=== PATIENT | female | born 1930 ===

== ENCOUNTER 2017-08-13 19:55 | Inpatient (IN) | payer MEDICARE ==
[2017-08-13] MEDS ORDERED: Fentanyl 100 MCG/2 ML VIAL ONE (20:57)
[2017-08-13] MEDS ORDERED: Ondansetron ODT 4 MG TAB ONE (20:58)
--- NOTE | 2017-08-13 21:47 | HP ---
DATE OF ADMISSION: 08/13/2017 REQUESTING PHYSICIAN: Graciela Whittaker DO ATTENDING SURGEON: El Mehta MD CONSULTATIONS: Orthopedics, Dr. Jones. HISTORY OF PRESENT ILLNESS: The patient is an 86-year-old woman who was reportedly outside of her home when she tripped and fell landing on her left side. The patient denied loss of consciou sness, hitting her head, weakness, dizziness, or any syncopal-type symptoms. The patient was able to summon help utilizing her Life Alert. She was brought initially to the emergency department in [facility], where she underwent evaluation and examination and was noted to have a left hip fracture, at w hich time, she was transferred to our facility for orthopedic evaluation and admission. ALLERGIES: None. CURRENT MEDICATIONS: The patient does not have her list with her, but states that she takes medicati ons for glaucoma, high blood pressure, high cholesterol, and diabetes. The patient's son is reported ly bringing her medications to our facility. PAST SURGICAL HISTORY: Appendectomy. FAMILY HISTORY: Diabetes and hypertension. PAST MEDICAL HISTORY: Glaucoma, hypertension, hyperlipidemia, type 2 diabetes. SOCIAL HISTORY: The patient smoked tobacco greater than 30 years ago. Denies alcohol or drug use. Currently lives independently at home. REVIEW OF SYSTEMS: 10-point review of systems is negative unless otherwise stated. PHYSICAL EXAMINATION: VITAL SIGNS: Blood pressure 156/81, heart rate 83, respirations 18, oxygen saturation 95% on room ai r, temperature is 97.7. GENERAL: The patient is resting comfortably in the emergency room bed. She is awake, alert, oriente d x3. [place] coma scale is 15. HEENT: Head is normocephalic, atraumatic. Eyes: Extraocular motion intact. PERRLA bilaterally. E ars are atraumatic without discharge. Nose is atraumatic without discharge. Oropharynx is clear. NECK: Nontender. Trachea is midline. No JVD. CHEST: Clear to auscultation with good inspiratory and expiratory effort. HEART: Regular rate and rhythm. ABDOMEN: Soft, flat, nontender. PELVIS: Stable. The patient does have tenderness to palpation to her left hip consistent with her f racture. EXTREMITIES: Neurovascularly intact x4. Capillary refill is less than 3 seconds. BACK: By history is nontender and atraumatic. LABORATORY FINDINGS: White blood cell count 7.5, hemoglobin 12.8, hematocrit 37.1, platelets 187. S odium 140, potassium 3.8, chloride 107, CO2 of 23, BUN 15, creatinine 0.7, glucose 218. RADIOGRAPHIC FINDINGS: Left hip shows a markedly displaced left femoral neck fracture. ASSESSMENT: 1. Status post ground-level fall. 2. Left femoral neck fracture. 3. History of hypertension. 4. History of hyperlipidemia. 5. History of diabetes. 6. Pain secondary to acute trauma. PLAN: Plan will be to admit the patient to the surgical floor for pain control overnight, pulmonary toilet, gastritis and mechanical VTE prophylaxis, and make the patient n.p.o. after midnight. The ca se will be discussed with Dr. Jones, will review the films and make a surgical plan, and consult t he patient in the morning. The patient's evaluation, examination, laboratory and radiographic findin gs will be discussed with Dr. Mehta after this dictation.
[2017-08-13 21:48] LABS: PTT 25.1 SEC (22.9-36.1); Prothrombin Time 12.7 SEC (12.0-14.7)
--- NOTE | 2017-08-13 21:57 | RAD ---
RADIOGRAPH LEFT HIP 2 VIEWS: DATE: 08/13/17 TIME: 8:22 p.m. HISTORY: 86-year-old female with traumatic left hip pain due to fall. COMPARISON: None. FINDINGS: There is a subcapital femoral neck fracture with varus angulation and mild superior displacement of t he distal fragment. No dislocation. Osteopenia. IMPRESSION: Acute, traumatic, displaced, closed, left subcapital femoral neck fracture. POS: THOMAS
[2017-08-13] MEDS ORDERED: Ondansetron HCl/PF 4 MG/2 ML Vial IVP PRN (22:17)
[2017-08-13] MEDS ORDERED: Dextrose 50% Abboject 50 ML SYRINGE SLOW IVP PRN (22:17)
[2017-08-13] MEDS ORDERED: Morphine 4 MG/ML Carpuject IVP PRN (22:17)
[2017-08-13] MEDS ORDERED: Ondansetron ODT 4 MG TAB PO PRN (22:17)
[2017-08-13] MEDS ORDERED: hydrALAZINE 20 MG/ML VIAL SLOW IVP PRN (22:17)
[2017-08-13] MEDS ORDERED: Dextrose 5% in Water 1,000 ML IV PRN (22:17)
--- NOTE | 2017-08-13 22:17 | RAD ---
RADIOGRAPH CHEST 1 VIEW: Date: 08/13/17 Time: 8:08 p.m. HISTORY: 86-year-old female for preoperative clearance. COMPARISON: 08/13/17 at 5:44 p.m. at [facility] FINDINGS: There is marked elevation of the left hemidiaphragm. There is partial silhouetting of the left hemidi aphragm with air space density. This lower lobe dense opacification appears somewhat worse than on e earlier chest radiograph. It is uncertain whether this apparent difference is due to positional dif ferences, or whether there has been actual worsening of air space density in the left lower lobe. The rest of the visualized lung maher are clear. No pneumothorax. No cardiomegaly. Right lateral costop hrenic angle is sharp. IMPRESSION: 1. Elevated left hemidiaphragm. 2. Left lower lobe air space density. Uncertain whether this represents atelectasis, pneumonia o r aspiration. There may or may not be an associated left pleural effusion. PHILL [] POS: THOMAS
[2017-08-13] MEDS ORDERED: Famotidine 20 MG TAB PO SCH (22:30)
[2017-08-13 22:45] VITALS: BMI 18.3
[2017-08-13] MEDS: Acetaminophen 1,000 MG in Premix Bag 1 BAG IVPB SCH (23:15)
[2017-08-13] MEDS: Ketorolac Tromethamine 30 MG/ML VIAL IVP SCH (23:15)
[2017-08-13] MEDS: Sodium Chloride 0.9% 1,000 ML IV SCH (23:24)
[2017-08-14] MEDS ORDERED: Dextrose 5% in Water 1,000 ML IV PRN (01:01)
[2017-08-14] MEDS ORDERED: Dextrose 50% Abboject 50 ML SYRINGE SLOW IVP PRN (01:01)
[2017-08-14 05:55] LABS: #Lymphocytes 1.3 thou/uL (1.20-3.40); #Monocytes 1.1 thou/uL (0.11-0.59); #Neutrophils 8.1 thou/uL (1.40-6.50); %Basophils 0.3 % (0.0-1.0); %Eosinophils 0.3 % (0.0-10.0); %Lymphocytes 12.7 % (21.0-51.0); %Monocytes 10.4 % (0.0-10.0); %Neutrophils 76.4 % (42.0-75.0); Hemoglobin 11.9 g/dL (12.0-16.0); Mean Corpuscular Hemoglobin 31.5 pg (27.0-31.0); Mean Corpuscular Volume 95.3 fL (78.0-98.0); Mean Platelet Volume 8.2 fL (7.4-10.4); Platelet Count 158 thou/uL (130-400); RBC Distribution Width 11.5 % (11.5-14.5); Red Blood Cell (RBC) Count 3.77 mill/uL (4.20-5.40); White Blood Cell (WBC) Count 10.6 thou/uL (4.8-10.8)
[2017-08-14] MEDS: Acetaminophen 1,000 MG in Premix Bag 1 BAG IVPB SCH ×3 (05:59→18:33)
[2017-08-14] MEDS: Ketorolac Tromethamine 30 MG/ML VIAL IVP SCH ×4 (05:59→18:31)
[2017-08-14 06:06] LABS: Anion Gap 11 mmol/L (10-20); BUN (Urea Nitrogen) 8 mg/dL (9.8-20.1); Calc. Creatinine Clearance 51 mL/min (70-130); Calcium 8.6 mg/dL (7.8-10.44); Carbon Dioxide 26 mmol/L (23-31); Chloride 104 mmol/L (98-107); Estimated GFR-MDRD Greater than 90; Glucose 140 mg/dL (83-110); Magnesium 1.7 mg/dL (1.6-2.6); Phosphorus 3.1 mg/dL (2.3-4.7); Potassium 3.8 mmol/L (3.5-5.1); Sodium 137 mmol/L (136-145)
[2017-08-14] MEDS ORDERED: Ketamine 50 MG/ML VIAL ONE (06:56)
[2017-08-14] MEDS ORDERED: Bupivacaine 0.75% W/DEXTROSE 8.25% 2 ML AMP ONE (06:57)
[2017-08-14] MEDS ORDERED: CEFAZOLIN/Water 2 GM/20 ML SYRINGE ONE (07:12)
[2017-08-14] MEDS ORDERED: CEFAZOLIN/Water 2 GM/20 ML SYRINGE SLOW IVP SCH (07:30)
[2017-08-14] MEDS ORDERED: Ondansetron HCl/PF 4 MG/2 ML Vial IVP PRN (08:16)
[2017-08-14] MEDS ORDERED: Promethazine HCl 25 MG/ML VIAL SLOW IVP PRN (08:16)
[2017-08-14] MEDS ORDERED: Promethazine HCl 25 MG/ML VIAL IM PRN (08:16)
[2017-08-14] MEDS ORDERED: COLESEVELAM HCL 1875 MG PO SCH (09:00)
[2017-08-14] MEDS: Amlodipine 10 MG TAB PO SCH (10:18)
[2017-08-14] MEDS: Famotidine 20 MG TAB PO SCH ×2 (10:19→21:51)
[2017-08-14] MEDS: Timolol 0.25% Ophth Soln 5 ml Bottle EA EYE SCH (10:19)
[2017-08-14] MEDS: Sodium Chloride 0.9% 1,000 ML IV SCH ×2 (10:19→21:52)
[2017-08-14] MEDS ORDERED: Ondansetron HCl/PF 4 MG/2 ML Vial ONE (10:25)
[2017-08-14] MEDS: CEFAZOLIN 1 GM in Sodium Chloride 0.9% 100 ML IVPB SCH ×2 (14:40→21:51)
[2017-08-15 05:48] LABS: Magnesium 1.6 mg/dL (1.6-2.6)
[2017-08-15] MEDS: Sodium Chloride 0.9% 1,000 ML IV SCH (07:15)
[2017-08-15 08:44] LABS: #Basophils 0.1 thou/uL (0.0-0.2); #Eosinphils 0.1 thou/uL (0.0-0.7); #Lymphocytes 1.1 thou/uL (1.20-3.40); #Neutrophils 6.8 thou/uL (1.40-6.50); %Basophils 0.6 % (0.0-1.0); %Eosinophils 1.4 % (0.0-10.0); %Monocytes 11.4 % (0.0-10.0); %Neutrophils 74.7 % (42.0-75.0); Hemoglobin 9.6 g/dL (12.0-16.0); Mean Corpuscular HGB CONC 34.4 g/dL (32.0-36.0); Mean Corpuscular Hemoglobin 32.6 pg (27.0-31.0); Mean Corpuscular Volume 94.8 fL (78.0-98.0); Platelet Count 135 thou/uL (130-400); RBC Distribution Width 11.6 % (11.5-14.5); Red Blood Cell (RBC) Count 2.95 mill/uL (4.20-5.40); White Blood Cell (WBC) Count 9.1 thou/uL (4.8-10.8)
[2017-08-15 09:10] LABS: Anion Gap 10 mmol/L (10-20); BUN (Urea Nitrogen) 8 mg/dL (9.8-20.1); Calc. Creatinine Clearance 44 mL/min (70-130); Carbon Dioxide 25 mmol/L (23-31); Chloride 106 mmol/L (98-107); Estimated GFR-MDRD 88; Glucose 230 mg/dL (83-110); Potassium 3.5 mmol/L (3.5-5.1); Sodium 137 mmol/L (136-145)
[2017-08-15] MEDS: Famotidine 20 MG TAB PO SCH ×2 (09:31→21:30)
[2017-08-15] MEDS: Amlodipine 10 MG TAB PO SCH (09:31)
[2017-08-15] MEDS ORDERED: Magnesium Sulfate 2 GM in Sodium Chloride 0.9% 250 ML 250 ML IVPB SCH (12:00)
[2017-08-15] MEDS ORDERED: Potassium Phosphate 30 MMOL in Sodium Chloride 0.9% 250 ML 250 ML IVPB SCH (12:00)
[2017-08-15] MEDS: Timolol 0.25% Ophth Soln 5 ml Bottle EA EYE SCH (13:05)
[2017-08-15] MEDS: Insulin Regular 300 UNITS/3 ML VIAL SC PRN (13:11)
--- NOTE | 2017-08-15 13:31 | EKG ---
Test Reason : Blood Pressure : / mmHG Vent. Rate : 070 BPM Atrial Rate : 070 BPM P-R Int : 140 ms QRS Dur : 088 ms QT Int : 382 ms P-R-T Axes : 080 025 020 degrees QTc Int : 412 ms Normal sinus rhythm with sinus arrhythmia Nonspecific ST and T wave abnormality Abnormal ECG Confirmed by ARLETTE CALLES ([id number]), editor trade journal JANESSA CARSON ([id number]) on 08/15/2017 1:31:16 PM Referred By: Confirmed By:ARLETTE CALLES
--- NOTE | 2017-08-15 19:48 | PRG ---
DATE OF SERVICE: 08/15/2017 SUBJECTIVE: The patient is currently on the surgical floor. She is status post a ground level fall in which she sustained a left femoral neck fracture. Yesterday, she underwent open reduction interna l fixation of same. She tolerated this procedure well and this morning was going to begin working [facility] physical and occupational therapy. She states her pain was controlled. She is tolerating a diet. PHYSICAL EXAMINATION: VITAL SIGNS: Temperature is 99.2, heart rate 96, blood pressure 132/69, respirations 16, oxygen satu ration 92% on room air. GENERAL: The patient is resting comfortably in bed. She is awake, alert, and oriented x3. [place] coma scale is 15. HEENT: Unremarkable. LUNGS: Clear to auscultation bilaterally with good inspiratory and expiratory effort. HEART: Regular rate and rhythm. ABDOMEN: Soft, flat, nontender with active bowel sounds. EXTREMITIES: Neurovascularly intact x4. Her postop dressing is clean, dry, and intact. LABORATORY DATA: White blood cell count 9.1, hemoglobin 9.6, hematocrit 28.0, platelets 135. Sodium 137, potassium 3.5, chloride 106, CO2 of 25, BUN 8, creatinine 0.64, glucose 230. There are no radi ographs to review this morning. ASSESSMENT AND PLAN: 1. Status post ground level fall. 2. Left femoral neck fracture status post open reduction internal fixation. 3. History of hypertension. 4. History of hyperlipidemia. 5. History of diabetes. Plan will be to continue supportive care, pain control, pulmonary toilet, gastritis, mechanical deep venous thrombosis prophylaxis. We will institute chemical VTE prophylaxis tomorrow. We will continu e physical and occupational therapy and discussed placement, plans with the patient.
[2017-08-15] MEDS: Latanoprost 0.005% Ophth Soln 2.5 ml Bottle EA EYE SCH (21:29)
[2017-08-16 04:26] LABS: #Basophils 0.1 thou/uL (0.0-0.2); #Eosinphils 0.3 thou/uL (0.0-0.7); #Lymphocytes 1.9 thou/uL (1.20-3.40); #Monocytes 1.7 thou/uL (0.11-0.59); #Neutrophils 7.9 thou/uL (1.40-6.50); %Basophils 0.8 % (0.0-1.0); %Eosinophils 2.8 % (0.0-10.0); %Lymphocytes 15.9 % (21.0-51.0); %Neutrophils 66.6 % (42.0-75.0); Hemoglobin 9.3 g/dL (12.0-16.0); Mean Corpuscular HGB CONC 33.6 g/dL (32.0-36.0); Mean Corpuscular Hemoglobin 32.3 pg (27.0-31.0); Mean Corpuscular Volume 96.2 fL (78.0-98.0); Mean Platelet Volume 9.2 fL (7.4-10.4); Platelet Count 113 thou/uL (130-400); RBC Distribution Width 11.6 % (11.5-14.5); Red Blood Cell (RBC) Count 2.87 mill/uL (4.20-5.40); White Blood Cell (WBC) Count 11.8 thou/uL (4.8-10.8)
[2017-08-16 04:41] LABS: Anion Gap 9 mmol/L (10-20); BUN (Urea Nitrogen) 7 mg/dL (9.8-20.1); Calc. Creatinine Clearance 53 mL/min (70-130); Calcium 7.9 mg/dL (7.8-10.44); Carbon Dioxide 27 mmol/L (23-31); Chloride 106 mmol/L (98-107); Estimated GFR-MDRD Greater than 90; Glucose 119 mg/dL (83-110); Magnesium 2.2 mg/dL (1.6-2.6); Potassium 3.6 mmol/L (3.5-5.1); Sodium 138 mmol/L (136-145)
[2017-08-16] MEDS: Amlodipine 10 MG TAB PO SCH (08:49)
[2017-08-16] MEDS: Enoxaparin Sodium 30 MG/0.3 ML SYRINGE SC SCH (08:50)
[2017-08-16] MEDS: Timolol 0.25% Ophth Soln 5 ml Bottle EA EYE SCH (08:51)
[2017-08-16] MEDS ORDERED: traMADol HCl 50 MG TAB PO PRN ×2 (11:50)
[2017-08-16] MEDS: Acetaminophen 325 MG TAB PO SCH ×4 (12:45→21:39)
[2017-08-16] MEDS: Ibuprofen 200 MG TAB PO SCH ×3 (12:45→21:05)
--- NOTE | 2017-08-16 14:14 | PRG ---
DATE OF SERVICE: 08/16/2017 SUBJECTIVE: The patient is status post ground level fall and sustained a left femoral neck fracture in which she has undergone open reduction and internal fixation of the same. She tolerated the proce dure well. She is currently on the surgical floor. She is tolerating a diet and she has begun worki ng with physical and occupational therapy. Overnight, she did well, though this morning she is compl aining of right knee pain. Otherwise, she is doing well. Her home medications have been resumed and today plan is to start her on chemical VTE prophylaxis. PHYSICAL EXAMINATION: VITAL SIGNS: Temperature is 98.9, heart rate 80, blood pressure 130/66, respirations 18, oxygen satu ration 92% on 2 liters via nasal cannula. GENERAL: The patient is resting comfortably in bed. She is awake, alert, and oriented x2. The tanika ent seemed to be somewhat confused, but family at bedside says this is her baseline. HEENT: Unremarkable. LUNGS: Clear to auscultation with good inspiratory and expiratory effort. HEART: Regular rate and rhythm. ABDOMEN: Soft, flat, nontender with active bowel sounds. EXTREMITIES: Neurovascularly intact x4. Postop dressing is clean, dry, and intact. LABORATORY FINDINGS: White blood cell count 11.8, hemoglobin 9.3, hematocrit 27.6, platelets 113. S odium 138, potassium 3.6, chloride 106, CO2 of 27, BUN 7, creatinine 0.53, glucose 119, magnesium 2.2 , phosphorus 2.0. There are no radiographs to review this morning. ASSESSMENT AND PLAN: 1. Status post ground level fall. 2. Left femoral neck fracture, status post open reduction and internal fixation. 3. Acute right knee pain. Plan will be to get radiographs of her right knee, continue pain control, physical and occupational t herapy and await final placement decision.
--- NOTE | 2017-08-16 15:26 | RAD ---
RIGHT KNEE 3 VIEWS: Date: 08/16/17 HISTORY: 86-year-old female with history of pain and warmness. FINDINGS: There is bone demineralization with marked vascular calcification. Very severe tricompartment arthros is and degenerative changes of the right knee joint with some swelling in the suprapatellar recess, r aising concern for suprapatellar recess effusion. No evidence for overt acute fracture on this 4 view study. 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 No evidence for acute overt fracture. POS: THOMAS
[2017-08-16] MEDS: Insulin Regular 300 UNITS/3 ML VIAL SC PRN (16:14)
[2017-08-16] MEDS ORDERED: Famotidine 20 MG TAB PO SCH (21:00)
[2017-08-16] MEDS: Senokot S 8.6-50 MG TAB PO SCH (21:00)
[2017-08-16] MEDS: Latanoprost 0.005% Ophth Soln 2.5 ml Bottle EA EYE SCH (21:01)
[2017-08-17] MEDS: Acetaminophen 325 MG TAB PO SCH ×3 (02:13→08:30)
[2017-08-17] MEDS: Ibuprofen 200 MG TAB PO SCH ×3 (04:50→11:28)
[2017-08-17 05:38] LABS: #Eosinphils 0.7 thou/uL (0.0-0.7); #Lymphocytes 1.1 thou/uL (1.20-3.40); #Monocytes 1.4 thou/uL (0.11-0.59); #Neutrophils 8.3 thou/uL (1.40-6.50); %Basophils 0.4 % (0.0-1.0); %Eosinophils 5.9 % (0.0-10.0); %Lymphocytes 9.5 % (21.0-51.0); %Monocytes 12.3 % (0.0-10.0); %Neutrophils 71.9 % (42.0-75.0); Hemoglobin 8.5 g/dL (12.0-16.0); Mean Corpuscular HGB CONC 32.8 g/dL (32.0-36.0); Mean Corpuscular Volume 97.5 fL (78.0-98.0); Mean Platelet Volume 9.2 fL (7.4-10.4); Platelet Count 118 thou/uL (130-400); RBC Distribution Width 11.5 % (11.5-14.5); Red Blood Cell (RBC) Count 2.67 mill/uL (4.20-5.40); White Blood Cell (WBC) Count 11.6 thou/uL (4.8-10.8)
[2017-08-17 05:44] LABS: Anion Gap 9 mmol/L (10-20); BUN (Urea Nitrogen) 12 mg/dL (9.8-20.1); Calc. Creatinine Clearance 56 mL/min (70-130); Calcium 8.1 mg/dL (7.8-10.44); Carbon Dioxide 27 mmol/L (23-31); Chloride 105 mmol/L (98-107); Estimated GFR-MDRD Greater than 90; Glucose 105 mg/dL (83-110); Magnesium 2.2 mg/dL (1.6-2.6); Phosphorus 2.4 mg/dL (2.3-4.7); Potassium 3.6 mmol/L (3.5-5.1); Sodium 137 mmol/L (136-145)
[2017-08-17] MEDS: Enoxaparin Sodium 30 MG/0.3 ML SYRINGE SC SCH (08:27)
[2017-08-17] MEDS: Amlodipine 10 MG TAB PO SCH (08:28)
[2017-08-17] MEDS: Timolol 0.25% Ophth Soln 5 ml Bottle EA EYE SCH (08:28)
[2017-08-17] MEDS: Senokot S 8.6-50 MG TAB PO SCH (08:29)
--- NOTE | 2017-08-17 09:23 | OP ---
DATE OF SURGERY: 08/14/2017 PREOPERATIVE DIAGNOSIS: Left femoral neck fracture, subcapital displaced. POSTOPERATIVE DIAGNOSIS: Left femoral neck fracture, subcapital displaced. SURGICAL PROCEDURE: Left hip hemiarthroplasty. ANESTHESIA: General. SURGEON: Naldo Jones M.D. COMMUNICATION SIGNALS INTELLIGENCE: JOSE ENRIQUE Garrett BLOOD LOSS: 150 mL. IMPLANTS: The DePuy system was used with a Baraga size 5 stem, a 28 x 45 bipolar cup and a +1.5 head . COMPLICATIONS: None. DRAINS: None. SPECIMEN: None. OUTCOME: Satisfactory. INDICATIONS: The patient is an 86-year-old lady status post ground level fall sustaining a left disp laced femoral neck fracture. After discussion with patient and family including risks and benefits, we decided to proceed with a left hip hemiarthroplasty procedure. Informed consent has been obtained . I believe all questions have been answered. PROCEDURE IN DETAIL: After the induction of general anesthesia, the patient was positioned in a righ t lateral decubitus position and then a sterile prep and drape was performed in left lateral thigh an d lower leg. Next, a curvilinear incision was made centered over the greater trochanter. After skin was sharply incised, dissection was carried down to the underlying tensor fascia. This structure wa s incised in line with the skin incision and then a Charnley retractor placed in the wound. The leg was brought into slight internal rotation and the short external rotators were identified. A retract or was placed under the abductors and the piriformis was released and tagged and reflected posteriorl y along with the superior and inferior gemelli. A T capsulotomy was then performed and the leaflets of this capsule were tagged and reflected. Next, a T handle corkscrew device was used to remove the femoral head. This was sized to a size 45. Next, an oscillating saw was used to make a femoral neck cut just approximately 1 cm above the lesser trochanter. This was then followed by the initial T schwartz ndle awl down the canal followed by a lateralizing reamer. Next progressive T handle awls were passe d down the canal up to a size 5, which gave good fit. Broaching was started at size 3 and continued up to size 5, which provided good fit and fill proximally. The size 5 trial was left in place and th en the bipolar trial head was applied and the hip reduced. This gave what appeared to be good restor ation of length and good fit and fill. As such, the trial was removed and then Pulsavac was used for irrigating the surgical field and femoral canal. A total of 3 liters was irrigated through the woun d during this procedure. Next, attention was placed at cement mixing. Cement was mixed and then the size 5 femoral stem was inserted. Once the cement had fully cured, the bipolar head was applied and then the hip reduced and again found to have excellent stability. The wound again irrigated and the n closed. #1 Vicryl was used to reattach the capsule followed by reattachment of the piriformis. Th e tensor fascia was closed with an interrupted 1 Vicryl closure followed by 0 Vicryl for Mikki's fas esperanza, 2-0 Vicryl subcutaneously, and melissa for the skin. Xeroform gauze and tape dressing was appli ed to the thigh and then patient was transferred to recovery room in stable condition. There were no complications and she tolerated the procedure well.
[2017-08-17 11:47] VITALS: TEMP 99
[2017-08-17] MEDS: Insulin Regular 300 UNITS/3 ML VIAL SC PRN (12:19)
[2017-08-17 13:40] VITALS: BP 122/68
--- NOTE | 2017-08-18 04:45 | DIS ---
DATE OF ADMISSION: 08/13/2017 DATE OF DISCHARGE: 08/17/2017 ADMISSION DIAGNOSES: 1. Status post ground level fall. 2. Left femoral neck fracture. 3. History of hypertension. 4. History of hyperlipidemia. 5. History of diabetes. 6. Pain secondary to acute trauma. CONSULTATION: Orthopedics, Dr. Jones. PROCEDURE: Left hip hemiarthroplasty. In summary, the patient is an 86-year-old, woman, who was reportedly outside of her home wh en she tripped and fell in her garden. She was able to summon help, and she was transported to the e mergency department via ground ambulance where she underwent evaluation and examination, and was note d to have the above injuries. On hospital day 2, she would undergo her above procedure, which she to lerated well. The patient would begin work with physical and occupational therapy. At the time of d ischarge, her pain was controlled. She was tolerating a diet, and she will be transferred to [facility] in [place] to continue her rehabilitation. She will follow up with Dr. Jones in 10-14 days, sooner as needed.
== END 2017-08-17 13:04 | disposition swing bed (61) | DRG 470 ==
LOC: ERS 19:55 → SURG A 21:00
PROVIDERS: ADMIT Specialist; ATTEND Specialist
PROC: 0SRS0J9 Replacement of Left Hip Joint, Femoral Surface with Synthetic Substitute, Cemented, Open Approach (ICD-10-PCS; principal; 2017-08-14)
DX: S72.012A Unspecified intracapsular fracture of left femur, initial encounter for closed fracture (principal); G89.11 Acute pain due to trauma; I10 Essential (primary) hypertension; E78.5 Hyperlipidemia, unspecified; E11.9 Type 2 diabetes mellitus without complications; H40.9 Unspecified glaucoma; Z87.891 Personal history of nicotine dependence; Z79.84 Long term (current) use of oral hypoglycemic drugs; Z79.899 Other long term (current) drug therapy; W01.0XXA Fall on same level from slipping, tripping and stumbling without subsequent striking against object, initial encounter
CPT/HCPCS: 36415; 36416; 71045; 80048; 83735; 84100; 85025; 85610; 85730; 86850; 86900; 86901; 93005; 96374; G0390; G8978-GP-CL; G8979-GP-CJ; G8987-GO-CK; G8988-GO-CK; G8989-GO-CK; J0131; J0690; J1650; J1815; J1885; J2270; J2405; J3010; J3475; J3490; J7050; Q0162